=== PATIENT | female | born 1945 | race Caucasian/White ===

== ENCOUNTER 2022-07-25 20:04 | Inpatient (IN) ==
[2022-07-25] MEDS ORDERED: Naloxone 0.4 MG/ML INJ IVP PRN (21:56)
[2022-07-25] MEDS ORDERED: Ondansetron 4 MG/2 ML VIAL IVP PRN (21:56)
[2022-07-25] MEDS ORDERED: *HR* OxyCODONE Immed Rel 5 MG TABLET PO PRN (21:56)
[2022-07-25] MEDS ORDERED: *HR* HYDROcodone/Acet 5/325 mg TABLET PO PRN (21:56)
[2022-07-25] MEDS ORDERED: Dextrose Gel 15 GM/37.5 ML TUBE PO PRN ×2 (22:09)
[2022-07-25] MEDS ORDERED: D5% in Water 1,000 ML IVC PRN (22:09)
[2022-07-25] MEDS ORDERED: *HR* Dextrose 50 % in Water (Syg) 50 ML SYRINGE IVP PRN (22:09)
[2022-07-25] MEDS: Acetaminophen 325 MG TABLET PO PRN (22:53)
[2022-07-26] MEDS: Insulin LISPRO 300 UNITS/3 ML VIAL SUBQ SCH ×4 (00:51→17:30)
[2022-07-26 04:31] LABS: Basophils # 0.1 K/mcL (0.0-0.2); Basophils % 0.9 %; Eosinophils # 0.1 K/mcL (0.0-0.6); Eosinophils % 1.1 %; Hematocrit 34.8 % (35.3-44.9); Hemoglobin 11.3 g/dL (11.5-15.4); Immature Granulocytes % 0.4 % (0-4); Lymphocytes # 0.9 K/mcL (0.6-4.6); Lymphocytes % 15.5 %; Mean Corpuscular HGB Conc 32.5 g/dL (31.6-35.5); Mean Corpuscular Hemoglobin 28.8 pg (28.0-33.3); Mean Corpuscular Volume 88.8 fL (83.0-100.0); Mean Platelet Volume 9.8 fL (9.4-12.4); Monocytes # 0.7 K/mcL (0.0-1.3); Monocytes % 12.3 %; Platelet Count 253 K/mcL (140-400); Red Blood Count 3.92 M/mcL (3.82-4.97); Red Cell Distribution Width 13.2 % (11.5-14.5); Segmented Neutrophils % 69.8 %; White Blood Count 5.7 K/mcL (4.3-11.1)
[2022-07-26 04:50] LABS: Calcium 8.6 mg/dL (8.6-10.3); Magnesium 1.7 mg/dL (1.6-2.6); Potassium 3.8 mEq/L (3.5-5.1)
[2022-07-26 05:10] LABS: Estimated Average Glucose 151 mg/dl; Hemoglobin A1C 6.9 %
[2022-07-26] MEDS: *HR* Heparin 5,000 UNIT/ML VIAL SQ SCH ×2 (06:20→17:30)
[2022-07-26] MEDS ORDERED: CeFAZolin Syr 2,000MG/20 ML 2,000 MG/20 ML SYRINGE IVPB ONE (07:18)
[2022-07-26] MEDS ORDERED: Acetaminophen IV 1,000 MG/100 ML BAG IVPB ONE (07:28)
[2022-07-26] MEDS ORDERED: *HR* FentaNYL (PF) 100 MCG/2 ML VIAL ONE (07:42)
[2022-07-26] MEDS ORDERED: *HR* Propofol 200 MG/20 ML VIAL IVP ONE (07:42)
[2022-07-26] MEDS ORDERED: Lidocaine -MPF 2% 5 ML VIAL ONE (07:43)
[2022-07-26] MEDS ORDERED: ROPIVACAINE/PF/NS 0.25% 1 EACH SYRINGE INTRAART ONE (08:05)
[2022-07-26] MEDS ORDERED: *HR* FentaNYL (PF) 100 MCG/2 ML VIAL IVP PRN (08:34)
[2022-07-26] MEDS: CeFAZolin 2 GM/120 ML BAG IVPB SCH ×2 (14:56→23:46)
[2022-07-26] MEDS: Acetaminophen 325 MG TABLET PO PRN (17:30)
[2022-07-26] MEDS: Ringers Solution, Lactated 1,000 ML IVC SCH (21:03)
[2022-07-27] MEDS: Acetaminophen 325 MG TABLET PO PRN (03:11)
[2022-07-27] MEDS: *HR* Heparin 5,000 UNIT/ML VIAL SQ SCH (06:16)
[2022-07-27 08:03] VITALS: O2SAT 97
[2022-07-27] MEDS: Insulin LISPRO 300 UNITS/3 ML VIAL SUBQ SCH ×2 (08:07→12:15)
[2022-07-27] MEDS: Ringers Solution, Lactated 1,000 ML IVC SCH (09:14)
[2022-07-27 11:54] VITALS: BP 143/58; PULSE 66; TEMP 98.5
[2022-07-27] MEDS ORDERED: Aspirin 81 MG TAB.CHEW PO ONE (12:16)
== END 2022-07-27 14:49 | disposition home health service (06) | DRG 482 ==
LOC: 4WAOSI → SUATTDRO 21:44
PROVIDERS: ADMIT Pharmacist; ATTEND General Practice